=== PATIENT | male | born 1980 | race Caucasian/White ===

== ENCOUNTER 2018-03-16 17:56 | Day surgery (SDC) | payer SELFPAY ==
[2018-03-16] MEDS ORDERED: ceFAZolin(*) 2GM/D5W 50ML 50 ML IVPB ONE ×2 (18:05→18:24)
--- NOTE | 2018-03-16 18:05 | ER Report ---
History and Physical Time Seen By MD: 17:59 Hx. of Stated Complaint: PT TATES WAS CUTTING WOOD WITH A CHAIN SAW AND CUT OFF HIS L INDEX FINGER. PT IS DISTRAUGHT AND UNCOOPERATIVE HPI/ROS CHIEF COMPLAINT: hand injury HISTORY OF PRESENT ILLNESS: This is a 37 year old male. He was working with a table saw and ended up cutting his hand. He does not know what happened. He had wrapped his hand and came to the ER, but did not look closely. He is in severe pain and panic. He is angry initially, throwing things, and verbally abusing staff. He does not want us to touch his hand. Is allergic to tetanus and diphtheria. REVIEW OF SYSTEMS: unable to obtain Allergies: Coded Allergies: tetanus and diphtheria toxoids (Verified Allergy, Unknown, 03/16/18) Home Meds No Active Prescriptions or Reported Meds Reviewed Nurses Notes: Yes Constitutional Vital Sign - Last 24 Hours 03/16/18 03/16/18 03/16/18 03/16/18 17:58 18:11 18:28 18:30 Temp 98.1 Pulse 93 112 Resp 20 B/P (MAP) 115/81 122/77 (92) 134/83 (100) Pulse Ox 93 94 O2 Delivery Room Air 03/16/18 03/16/18 03/16/18 03/16/18 18:41 18:56 19:00 19:11 Pulse 83 94 83 B/P (MAP) 124/89 (101) Pulse Ox 89 94 93 03/16/18 03/16/18 03/16/18 03/16/18 19:26 19:30 19:41 19:46 Pulse 81 81 ??? B/P (MAP) 150/80 (103) Pulse Ox 96 92 03/16/18 03/16/18 20:00 20:01 Pulse 81 B/P (MAP) 136/88 (104) Pulse Ox 90 Physical Exam General: Alert, acute distress. Musculoskeletal: Severe pain, Missing index finger of left hand just distal to the PIP joint. Irregular deformed 3rd finger with distal laceration. Normal thumb and 4th finger. Lacerations on the 5th finger. Unable to asses function based on patient's distress on initial exam. Neuro: Unable to fully asses due to distress, but intact fingers seem to have full sensation. Cardiovascular: Normal capillary refill. Skin: As above, unable to fully evaluate lacerations based on distress. Medical Decision Making EKG/Imaging Imaging HAND COMPLETE LEFT HISTORY: Injury COMPARISON: None FINDINGS: Amputation of the index finger at the level of the base of the middle phalanx. Dislocation at the PIP joint of the middle finger. Small ossific densities at the DIP joint of the middle finger and adjacent to the third metacarpal head concerning for small fracture fragments. Small ossicle at the fifth PIP joint also concerning for fracture fragment. Small dorsal ossific density at the fifth PIP joint concerning for dorsal plate avulsion. Abnormal contour to the second metacarpal head may be acute versus chronic fracture. IMPRESSION: 1. Extensive traumatic deformity to the hand including amputation of the index finger at the base of the middle phalanx. Dislocation at the PIP joint of the middle finger. Report Dictated By: Scott Perez MD at 03/16/2018 6:35 PM ED Course/Re-evaluation ED Course The patient was given Fentanyl 50mcg IV and then digital blocks were performed. The patient felt much improved. His girlfriend went home to try to find the amputated finger. He is unable to remember what happened, but thinks that he was just moving too fast and got his hand caught. 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 His girlfriend was abler to return with the finger. I discussed the case with Dr. Jean-Baptiste. He attempted to contact Dr. Garnett, but he was not available. I discussed with the patient that if replantation was desired, we would need to send him to [facility] for this, or he could have Dr. Jean-Baptiste come and finish the amputation and repairs. After discussing benefits and costs or each course of action, the patient eventually decided that he would just like to have the amputation completed here and would not like to consider transport for replantation of the finger. Last oral intake was about 2:00 this afternoon. Procedure: Digital block of the 2nd, 3rd, and 5th fingers of the left hand. A digital block was performed for pain and injury as noted. The block was performed with lidocaine 1% without epinephrine and 0.5% bupivacaine without epinephrine. The patient experienced considerable pain relief. The procedure was performed by myself. Procedure: 3rd PIP joint dislocation reduction The finger was reduced in the usual fashion without complications. Post reduction the patient was able to fully flex and extend the finger, but sensation is unable to be evaluated due to digital block performed earlier. The procedure was performed by myself. Decision to Disposition Date: Mar 16, 2018 Decision to Disposition Time: 19:53 Depart Departure Latest Vital Signs Vital Signs Date Time Temp Pulse Resp B/P (MAP) Pulse Ox O2 Delivery O2 Flow Rate FiO2 03/16/18 20:01 81 90 03/16/18 20:00 136/88 (104) 03/16/18 17:58 98.1 20 Room Air Impression: Primary Impression: Amputation of left index finger Additional Impressions: Dislocation of PIP joint of finger Laceration of finger Condition: Improved Disposition: ADMIT FROM ER TO OR New Scripts No Active Prescriptions or Reported Meds Problem Qualifiers Additional Impressions: Dislocation of PIP joint of finger Encounter type: initial encounter Qualified Codes: S63.289A - Dislocation of proximal interphalangeal joint of unspecified finger, initial encounter Laceration of finger Encounter type: initial encounter Finger: unspecified finger Damage to nail status: without damage Foreign body presence: without foreign body Laterality: left Qualified Codes: S61.219A - Laceration without foreign body of unspecified finger without damage to nail, initial encounter WILLIAM REY MD Mar 16, 2018 18:05
[2018-03-16] MEDS ORDERED: fentaNYL CITR 100 MCG/2 ML AMP IVP ONE ×2 (18:10→19:05)
--- NOTE | 2018-03-16 18:41 | RADIOLOGY IMAGING REPORT ---
FACILITY: [facility] PATIENT NAME: William Weir : 1980 MR: [id number] V: [id number] EXAM DATE: ORDERING PHYSICIAN: WILLIAM REY TECHNOLOGIST: Location: [facility] - [place] Patient: William Weir : 1980 Visit/Account:[id number] Date of Sevice: 03/16/2018 HAND COMPLETE LEFT HISTORY: Injury COMPARISON: None FINDINGS: Amputation of the index finger at the level of the base of the middle phalanx. Dislocation at the PI P joint of the middle finger. Small ossific densities at the DIP joint of the middle finger and gary cent to the third metacarpal head concerning for small fracture fragments. Small ossicle at the fift h PIP joint also concerning for fracture fragment. Small dorsal ossific density at the fifth PIP juan nt concerning for dorsal plate avulsion. Abnormal contour to the second metacarpal head may be acute versus chronic fracture. IMPRESSION: 1. Extensive traumatic deformity to the hand including amputation of the index finger at the base of the middle phalanx. Dislocation at the PIP joint of the middle finger. Report Dictated By: Scott Perez MD at 03/16/2018 6:35 PM Report E-Signed By: Scott Perez MD at 03/16/2018 6:38 PM WSN:[id number]
[2018-03-16 20:30] VITALS: BP 139/85
[2018-03-16] MEDS ORDERED: PROPOFOL EMUL(*) 10MG/ML 20 ML 20 ML ONE (20:36)
[2018-03-16] MEDS ORDERED: MIDAZOLAM 2 MG/2 ML VIAL ONE (20:43)
[2018-03-16] MEDS ORDERED: NS(*) 0.9% 1000 ML BAG 1,000 ML IV ONE (21:16)
[2018-03-16] MEDS ORDERED: KETOROLAC 30 MG/ML VIAL ONE (21:57)
[2018-03-16] MEDS ORDERED: OXYC-857 PO (22:04)
[2018-03-16] MEDS ORDERED: fentaNYL CITR 100 MCG/2 ML AMP ONE (22:11)
[2018-03-16] MEDS ORDERED: oxyCODONE/ACETAMIN 5/325MG TH 2 TAB/BOTTLE ONE (22:43)
--- NOTE | 2018-03-17 09:03 | OPERATIVE REPORT 1 ---
EVENT DATE: March 16, 2018 SURGEON: Ray Jean-Baptiste MD ANESTHESIOLOGIST: Vlad Elena MD ANESTHESIA: business technology architect: none PREOPERATIVE DIAGNOSIS Amputation of distal index finger, severe trauma to the middle finger and to the little finger. POSTOPERATIVE DIAGNOSES 1. Amputation of distal index finger, severe trauma to the middle finger and to the little finger. 2. Partially transected flexor tendon of the distal portion of the middle finger. PROCEDURE PERFORMED Irrigation and debridement, closure and flexor tendon repair. TOURNIQUET TIME Less than an hour. DESCRIPTION OF PROCEDURE The patient was brought to the operating room and placed in a supine position with the left arm out and prepped and draped using Betadine wash and prep. Once it was prepped and washed, we put an extremity drape and tourniquet as well as a plastic U-drape. At this point, we used Esmarch to exsanguinate the upper extremity. Tourniquet was turned up to 250. At this point, we did an exploration. The index finger was a very clean cut but it was right at the level of where the fracture was. Therefore, I had to remove the distal portion of the proximal joint and I was able to get right down to the joint, which showed no evidence of any gross contamination. I did wash it out with normal saline. Once it was washed out completely with normal saline, I then closed the palmar flap up dorsally using 4-0 Nylon in a single interrupted stitch manner. At this point, it looked to have good closure. I then turned my attention to the index finger. The index finger had a very deep cut that actually went down all the way to the flexor tendon. Although the flexor tendon was intact partially, the other part was completely devoid. I was able to repair most of that back using a 4-0 FiberWire. Then I closed the skin using a 4-0 Nylon. I then turned my attention to the pinkie. The pinkie had lost a significant amount of soft tissue all the way down to bone. As matter of fact, it had even taken a part of the ulnar collateral ligament; it was completely gone. At this point, I tried to repair the capsule as best I could and then repair the skin but it was tentative at best. The matrix of the fingernail was completely disrupted. I tried to repair that as best I could after washing it out and identifying it. At this point, I closed the skin as best I could and put the hand in a large bulky dressing, keeping it in a slightly flexed position, the fingers, due to the instability, and left the thumb out. The patient went to recovery with no complications. Tourniquet was turned down. RHONDA
== END 2018-03-16 23:15 | disposition home or self-care (01) ==
LOC: ER 18:06 → OR 20:05
PROVIDERS: ATTEND Orthopaedic Surgery
DX: S61.219A Laceration without foreign body of unspecified finger without damage to nail, initial encounter (principal); S63.289A Dislocation of proximal interphalangeal joint of unspecified finger, initial encounter
CPT/HCPCS: 26350; 26770; 73130; 88305; 88311; 96361; 96365; 96375; 96376; 99284; J1885; J2250; J2704; J3010; J7030; J0690

== ENCOUNTER 2018-03-20 00:17 | Day surgery (SDC) | payer SELFPAY ==
[~2018-03-20] VITALS: Ht 185.4 cm; Wt 66.7 kg
[~2018-03-20 00:17] MED LIST: OXYC-857 PO
[2018-03-20] MEDS ORDERED: PROPOFOL EMUL(*) 10MG/ML 20 ML 40 ML ONE (14:59)
[2018-03-20] MEDS ORDERED: NEOMYCIN/POLYMYX/BACITR 30 GM TP ONE (15:00)
[2018-03-20] MEDS ORDERED: ROPIVACAINE 0.2% 20 ML VIAL ONE (15:01)
[2018-03-20] MEDS ORDERED: fentaNYL CITR 100 MCG/2 ML AMP ONE ×3 (15:01→17:55)
[2018-03-20 15:11] VITALS: BP 111/67
[2018-03-20] MEDS ORDERED: LIDOCAINE/SOD BICARB 8.4% SYR ID ONE (15:15)
[2018-03-20] MEDS ORDERED: FAMOTIDINE 20 MG TAB PO ONE (15:15)
[2018-03-20] MEDS ORDERED: CELECOXIB 200 MG CAP PO ONE (15:15)
[2018-03-20] MEDS ORDERED: MIDAZOLAM 2 MG/2 ML VIAL IVP PRN (15:15)
[2018-03-20] MEDS ORDERED: ceFAZolin(*) 1 GM VIAL 1 GM in NS(*) 0.9% 100 ML ADDVANT BAG 100 ML IVPB ONE (15:15)
[2018-03-20] MEDS ORDERED: NORMOSOL R SOLN(*) 1000 ML BAG 1,000 ML IV PRN (15:15)
[2018-03-20] MEDS ORDERED: HYDR-385 PO (17:59)
[2018-03-20] MEDS ORDERED: CEPH500T7 PO (18:00)
[2018-03-20] MEDS ORDERED: APAP/HYDROCODONE 325/5 TAB ONE ×2 (18:09→18:43)
[2018-03-20 18:45] VITALS: BP 118/75
--- NOTE | 2018-03-20 19:02 | OPERATIVE REPORT 1 ---
EVENT DATE: March 20, 2018 SURGEON: Cleve Garnett MD ANESTHESIOLOGIST: Noel Elena MD ANESTHESIA: General. PAYROLL ACCOUNTANT: SCOUT Goldstein PREOPERATIVE DIAGNOSES 1. Table saw injury to the left hand. 2. Prior revision amputation of index finger by Dr. Jean-Baptiste. 3. Significant trauma to long fingertip and small fingertip. POSTOPERATIVE DIAGNOSES 1. Left long finger complex laceration involving damage to distal and middle phalanges with loss of 70% of flexor digitorum profundus tendon and division of radial digital nerve. 2. Soft tissue wound to include loss of 50% of proximal aspect of distal phalanx of small finger and approximately 50% or more of the distal condyle at the middle phalanx, left small finger. PROCEDURES PERFORMED 1. Debridement of devitalized tissue in left long finger (30246). 2. Irrigation and debridement, traumatic arthrotomy to include debridement and curettage of bony wounds to distal phalanx and middle phalanx at distal interphalangeal joint articular surface (53204). 3. Repair of flexor digitorum profundus tendon at long finger with intact sublimis (50984). 4. Percutaneous pinning of distal interphalangeal joint at long finger to stabilize damaged bony and tendinous structures (77002). 5. Radial digital nerve repair at long finger (42511). 6. Revision amputation of left small finger (69702). ESTIMATED BLOOD LOSS Minimal. INTRAVENOUS FLUIDS Please see the anesthetic record. TOURNIQUET TIME Please see the anesthetic record. SPECIMENS Specimens included the left small fingertip sent to Pathology. IMPLANTS USED One 0.045-inch K-wire and Jurgan ball. SUMMARY OF PROCEDURE The patient was brought into the operating room and placed on the OR table in the supine position with the hand table at his left side. I had not previously seen the wound as Dr. Jean-Baptiste had described it to me, and we did not take it down when I had seen him in the office as he was in tremendous pain. After attaining adequate general anesthesia, we unwrapped the wound and took a look at his hand. The thumb was intact. The index finger amputation site was adequate and was well closed. The long finger had a lot of fluid draining from the tip and had devitalized tissue including some now demarcated skin where the saw had hit the tissue, and it looked like there was damage to the bone and tendon beneath it. The ring finger looked spared other than small nicks and scratches, and the small finger looked like it would probably require amputation as it was relatively unstable and clearly had a fracture of the middle and distal phalanges. We irrigated the wound and then did a standard prep and drape. The limb was exsanguinated, and the tourniquet was inflated to 250 mmHg. The index finger did not require additional treatment. For the long finger, we started with an extensive debridement at the tip to include all devitalized tissue. The FDP tendon had about 70% loss. There was also damage to the distal interphalangeal joint with damage to the phalanges both distal and middle at that location. We curettaged the damaged bone and irrigated out the traumatic arthrotomy. We then did a repair of the flexor digitorum profundus with an intact sublimis. We mobilized the radial digital nerve and then advanced it. It could be repaired despite the curf from the table saw, but the joint itself was relatively unstable. It could easily be hyperextended. Consequently, after irrigation, we drove a K-wire through the distal phalanx, bent the finger a bit, and then drove it into the middle phalanx. This was capped with a Jurgan ball. We then advanced and repaired the radial digital nerve using 8-0 nylon suture from the sharp point set and [employer]. The wound was irrigated one final time before confirming that we had all devitalized tissue removed, and then advancing and direct repair were undertaken for the skin after having previously mobilized the tissue by doing a mid axial approach on the radial side. Attention was now directed to the small finger. I was hoping to save the small finger and perhaps do a skin graft. We had Integra graft ready; however, this finger was really not salvageable. I would estimate that approximately 65% to 70% of the articular surface at the distal phalanx was gone, and at least 50% on the middle phalanx also was missing. This damage extended all the way down to and including the nail matrix and the nail fold. We did have an [employer] team ready to assist us in doing ligament reconstruction; however, there was insufficient bony tissue remaining to allow for this. I then took a look to see if we could perhaps get a fusion, but with the amount of damage here, I thought the risk of a nonunion and certainly an infection would be very high. Consequently, we decided to convert to an amputation. We removed the distal phalanx. We used a rongeur to trim down the distal aspect of the middle phalanx and then used the good tissue remaining on the small finger to wrap around and effect the revision amputation. The wound was irrigated. He received a block, and dressings were applied. He was awakened and transferred to the recovery room in stable condition. RHONDA
[2018-03-20 19:09] VITALS: BP 127/75
[2018-03-20 19:11] VITALS: BP 128/73
== END 2018-03-20 18:45 | disposition home or self-care (01) ==
LOC: OR 00:17
PROVIDERS: ATTEND Orthopaedic Surgery Hand Surgery
DX: S66.123A Laceration of flexor muscle, fascia and tendon of left middle finger at wrist and hand level, initial encounter (principal); S68.626A Partial traumatic transphalangeal amputation of right little finger, initial encounter; W29.8XXA Contact with other powered hand tools and household machinery, initial encounter
CPT/HCPCS: 11044; 26080; 26370; 26756; 26951; 64831; 88305; A4565; J0690; J2250; J2704; J2795; J3010; J7050